=== PATIENT | female | born 1955 | race Caucasian/White ===

== ENCOUNTER 2017-01-08 21:10 | Emergency (ER) | payer OTHER ==
[~2017-01-08] VITALS: Ht 149.9 cm; Wt 72.6 kg
[2017-01-08 21:38] VITALS: BP 150/90
--- NOTE | 2017-01-08 22:38 | NUR ---
TO ER BED 6
--- NOTE | 2017-01-08 22:48 | NUR ---
PATIENT PRESENTS TO ED WITH SHE HIT LEFT BIG TOE WITH PAIN AND NAIL ALMOST TO REMOVED WITH HEMATOMA FOR 2 MONTHS.DENIES N/V/D; SKIN IS PINK/WARM/DRY; AAOX4 WITH EVEN AND STEADY GAIT; LUNGS CLEAR BL; HR EVEN AND REGULAR; PT DENIES ANY FEVER, CP, SOB, OR COUGH AT THIS TIME; PATIENT STATES PAIN OF 8/10 AT THIS TIME; PATIENT POSITIONED FOR COMFORT; HOB ELEVATED; BEDRAILS UP X2; BED DOWN. ER MD WILL BE NOTIFIED.
--- NOTE | 2017-01-08 22:59 | NUR ---
FLOYD STALLWORTH AT BEDSIDE.
[2017-01-08] MEDS ORDERED: LIDOCAINE 1% 500 MG/50 ML VIAL INJ ONE (23:05)
[2017-01-08] MEDS ORDERED: ACETAMINOPHEN 325 MG TAB PO ONE (23:25)
[2017-01-08] MEDS ORDERED: BACITRACIN OINT 500 UNITS/GM PKT TP ONE (23:29)
[2017-01-08 23:56] VITALS: BP 140/84
--- NOTE | 2017-01-08 23:56 | NUR ---
Patient discharged with v/s stable. Written and verbal after care instructions given and explained. Patient alert, oriented and verbalized understanding of instructions. Ambulatory with steady gait. All questions addressed prior to discharge. ID band removed. Patient advised to follow up with PMD IN 2 DAYS. Rx of NAPROSYN AND KEFLEX given. Patient educated on indication of medication including possible reaction and side effects. Opportunity to ask questions provided and answered.
== END 2017-01-08 23:56 | disposition home or self-care (01) ==
LOC: MED 21:10
DX: M79.675 Pain in left toe(s) (principal); I10 Essential (primary) hypertension; M19.90 Unspecified osteoarthritis, unspecified site
CPT/HCPCS: 11730; 73660; 99284; J2001

== ENCOUNTER 2017-09-02 15:50 | Emergency (ER) | payer OTHER ==
[~2017-09-02] VITALS: Ht 149.9 cm; Wt 60.5 kg
[2017-09-02 15:59] VITALS: BP 124/70
--- NOTE | 2017-09-02 16:06 | NUR ---
PATIENT PRESENTS TO ED WITH c/o pain to left 2nd digit---redness with raised cluster of vesicles ntoed to small area of digit x 3 days . PATIENT STATES PAIN OF 8/10 AT THIS TIME; VSS; ER MD MADE AWARE OF PT STATUS.
[2017-09-02 16:50] VITALS: BP 124/70
--- NOTE | 2017-09-02 16:50 | NUR ---
Patient discharged with v/s stable. Written and verbal after care instructions given and explained. Patient alert, oriented and verbalized understanding of instructions. Ambulatory with steady gait. All questions addressed prior to discharge. ID band removed. Patient advised to follow up with PMD. Rx of ACYCLOVIR, PREDNISONE, ZOVIRAX TOPICAL CREAM given. Patient educated on indication of medication including possible reaction and side effects. Opportunity to ask questions provided and answered.
== END 2017-09-02 16:50 | disposition home or self-care (01) ==
LOC: MED 15:50
DX: B00.89 Other herpesviral infection (principal); I10 Essential (primary) hypertension
CPT/HCPCS: 99283

== ENCOUNTER 2019-04-13 11:33 | Emergency (ER) | payer MEDICARE, OTHER ==
[~2019-04-13] VITALS: Ht 149.9 cm; Wt 55.8 kg
[2019-04-13 11:50] VITALS: BP 147/91
--- NOTE | 2019-04-13 13:19 | NUR ---
PT AMBULATED TO BED 7.
--- NOTE | 2019-04-13 13:30 | NUR ---
64/F PRESENTS TO ED, C/O EPISODE OF DIZZINESS IN THE GYM WHILE EXERCISING 3 HRS AGO. WAS TOLD BY GYM STAFF TO COME IN THE ER DUE TO ELEVATED BP. BP 150/70 AT THIS TIME. REPORTS CALMING OF SYMPTOMS AT THIS TIME. DENIES ANY PAIN. PT AWAKE AND ALERT, PERRLA 2MM, SKIN LOOSE, NORMAL COLOR, WARM AND DRY, RR EVEN AND UNLABORED. LUNG SOUNDS CLEAR BL. +2 ALL PERIPHERAL STRENGTH HX HTN RX HTN MEDS
--- NOTE | 2019-04-13 13:34 | NUR ---
Patient being evaluated by Dr. Gore at bedside.
--- NOTE | 2019-04-13 13:50 | NUR ---
Patient taken to CT scan via wheelchair by tech.
--- NOTE | 2019-04-13 14:00 | NUR ---
Patient returned from CT scan. RN re-evaluating patient at bedside.
[2019-04-13 14:57] VITALS: BP 149/79
--- NOTE | 2019-04-13 14:57 | NUR ---
Patient discharged with v/s stable. Written and verbal after care instructions given and explained. Patient alert, oriented and verbalized understanding of instructions. Ambulatory with steady gait. All questions addressed prior to discharge. ID band removed. Patient advised to follow up with PMD. Rx of Acetaminophen 500mg given. Patient educated on indication of medication including possible reaction and side effects. Opportunity to ask questions provided and answered.
== END 2019-04-13 14:57 | disposition home or self-care (01) ==
LOC: MED 11:33
DX: R51 Headache (principal); I10 Essential (primary) hypertension
CPT/HCPCS: 70450; 99284